=== PATIENT | female | born 2000 | race African-American/Black ===

== ENCOUNTER 2022-11-16 21:31 | Emergency (ER) | payer OTHER, MEDICAID, SELFPAY ==
[2022-11-16 21:35] VITALS: BP 138/73; PULSE 113; RESP 18; TEMP 36.7; O2SAT 98; BMI 19.8
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
[2022-11-16] MEDS: ACETAMINOPHEN 325 MG TABLET 650 MG PO (22:42)
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
[2022-11-17 01:03] VITALS: BP 114/59; PULSE 55; RESP 16; TEMP 36.9; O2SAT 100
== END 2022-11-17 01:23 | disposition short-term general hospital (02) ==
PROVIDERS: Emergency Provider Emergency Medicine
DX: T76.21XA Adult sexual abuse, suspected, initial encounter (principal)
CPT/HCPCS: 99283

== ENCOUNTER 2023-07-12 17:30 | Emergency (ER) | payer OTHER, MEDICAID, SELFPAY ==
[2023-07-12 18:00] VITALS: BP 116/67; PULSE 91; RESP 14; TEMP 36.6; O2SAT 99; BMI 21.2
[2023-07-12 18:26] LABS: Bacteria Urine None Seen; Culture Indicated Urine Cult Not Indicated; RBC Urine 10-30/HPF (0-5/HPF); Squamous Epithelial Cell Urine 1-5 /HPF (0-5/HPF); Urine Volume 10mL (spun); WBC Urine 0-1/HPF (0-5/HPF)
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
[2023-07-12 19:15] LABS: Add Manual Diff / Slide Review YES; Hematocrit 37.1 % (36-46); Hemoglobin 12.4 g/dL (12.0-16.0); Mean Corpuscular HGB Conc 33.4 % (30-36); Mean Corpuscular Hemoglobin 31.5 PG (26-34); Mean Corpuscular Volume 94.3 fL (80-100); Platelet Count 254 X10^3/uL (150-400); Red Blood Cell Count 3.94 X10^6/uL (4.0-5.2); Red Cell Distribution Width 12.9 % (11.6-14.8); White Blood Cell Count 3.6 X10^3/uL (4.5-11.0)
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
[2023-07-12 19:26] LABS: Acetaminophen < 10 ug/mL (10-30); Alanine Aminotransferase 14 IU/L (<35); Albumin Globulin Ratio 1.4 (1.0-2.8); Alkaline Phosphatase 60 U/L (38-126); Aspartate Aminotransferase 27 IU/L (14-36); BUN Creatinine Ratio 13.2 (6-22); Bilirubin Total 0.4 mg/dL (0.2-1.3); Blood Urea Nitrogen 9 mg/dL (7-17); Calcium 8.5 mg/dL (8.4-10.2); Carbon Dioxide 28 mmol/L (22-32); Chloride 104 mmol/L (98-107); Estimated Glomerular Filt Rate > 60 mL/min (>60); Ethanol (ETOH) < 10 mg/dL; Globulin 2.8 g/dL (1.7-4.1); Glucose 98 mg/dL (70-100); HEMOLYSIS < 15 (0-50); Potassium 3.6 mmol/L (3.4-5.1); Salicylate < 1.0 mg/dL (<20); Sodium 137 mmol/L (137-145); Total Protein 6.8 g/dL (6.3-8.2)
[2023-07-12 19:42] LABS: Free T4, Direct Thyroxine 0.87 ng/dL (0.78-2.19)
[2023-07-12 20:06] LABS: Neutrophils Absolute Manual 1224 /uL (3000-5900); RBC Morphology Normal Morphology; Total Cells Counted 100
== END 2023-07-12 19:34 | disposition home or self-care (01) ==
PROVIDERS: Emergency Provider Emergency Medicine
DX: F32.A Depression, unspecified (principal)
CPT/HCPCS: 80053; 80320; 80329; 81003; 81015; 81025; 84439; 84443; 85007; 85025; 99282; G0480

== ENCOUNTER 2023-07-15 14:53 | Emergency (ER) | payer OTHER, MEDICAID, SELFPAY ==
[2023-07-15 15:05] VITALS: BMI 21.2
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
--- NOTE | 2023-07-15 16:02 | PC.NURSE ---
Patient stated she needed to leave, and would like to talk to the nurse. Nurse and Social Work notified.
--- NOTE | 2023-07-15 17:02 | PC.NURSE ---
CYLINDER DYER NOTE: pt is calmly talking with her special education case manager from the family detention.
--- NOTE | 2023-07-15 17:25 | PC.NURSE ---
1721 Pt remained resistant to inpatient tx. CONSTRUCTION SALES REPRESENTATIVE spoke with pt and was given contacts to [facility] general worker and pt's therapist. CONSTRUCTION SALES REPRESENTATIVE spoke with case work and shoe caser came to speak with patient. general worker informed pt that it was not safe for her to [facility] because they do not have a staff member this weekend to help develop a safety contract. Pt agreed to voluntary inpatient tx at this time. CONSTRUCTION SALES REPRESENTATIVE aware and working on case.
[2023-07-15 17:37] VITALS: BP 122/64; PULSE 72; RESP 18; O2SAT 99
[2023-07-15 17:52] LABS: UR Morphine/Opiate cutoff 300 Negative (Negative); Ur Creatinine Normal (Normal); Ur Specific Gravity Normal (Normal); Urine Amphetamines Negative (Negative); Urine Barbiturates Negative (Negative); Urine Benzodiazepines Negative (Negative); Urine Cocaine Negative (Negative); Urine MDMA Negative (Negative); Urine Methadone Negative (Negative); Urine Methamphetamines Negative (Negative); Urine Oxycodone Negative (Negative); Urine Phencyclidine Negative (Negative); Urine Tetrahydrocannabinol Negative (Negative); Urine Tricyclic Antidepressant Negative (Negative); Urine pH Normal (Normal)
[2023-07-15 18:12] LABS: Bacteria Urine Moderate (10-30); Culture Indicated Urine Cult Not Indicated; RBC Urine None Seen (0-5/HPF); Squamous Epithelial Cell Urine 1-5 /HPF (0-5/HPF); Urine Volume 10mL (spun); WBC Urine 0-1/HPF (0-5/HPF)
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
--- NOTE | 2023-07-15 19:15 | ED.PSYCH ---
HPI - Psych General Chief Complaint: Psychiatric Symptoms Stated Complaint: SI Time Seen by Provider: 07/15/23 15:39 Source: patient and police Mode of arrival: Ambulatory Limitations: no limitations History of Present Illness HPI Narrative: 23-year-old female with history of PTSD, anxiety and suicidal ideation. Sent to the ED by Silver CANTRELL after calling the SI hotline and texting of the help line at the [facility]. Had indicated that she wanted it all to end. Had thoughts of suicidal ideation this morning and a PT did feel SERA paperwork. Patient states she was having thoughts of killing herself, she states that her plan was to strangle herself with her telephone cord. She states she does not have that intent currently. She was not able to contract for safety. But she is seeking inpatient stay, she has had 1 prior stay at [place] as a minor. She denies any thoughts of harming others. No hallucinations. She denies any other medical issues, no prior surgeries no known drug allergies. She does have a counselor supposed to see them this upcoming Sunday. Denies tobacco, no regular alcohol or recreational drugs. Related Data Allergies Allergy/AdvReac Type Severity Reaction Status Date / Time No Known Drug Allergies Allergy Verified 07/12/23 18:11 Review of Systems Review of Systems ROS Unobtainable: All systems reviewed & are unremarkable except as noted in HPI and below Patient History Social History Smoking Status: Never smoker Smoking Status: Never smoker alcohol intake frequency: holidays/special occasions only Substance Use Type: does not use Exam Narrative Exam Narrative: GENERAL: Alert and oriented x three, female in mild distress HEENT: Head normocephalic, atraumatic, EOMI, pupils reactive, face symmetric, moist mucous membranes NECK: Supple, full range of motion CARDIOVASCULAR: Regular rate and rhythm without murmurs, rubs or gallops. RESPIRATORY: Breath sounds equal bilaterally, no wheezes rales or rhonchi. ABDOMEN: Soft, nontender. Normoactive bowel sounds all 4 quadrants. No guarding or rebound, rigidity, no mass : No CVA tenderness EXTREMITIES: Normal range of motion, no clubbing or edema. Neurovascularly intact NEUROLOGICAL: Cranial nerves II through XII grossly intact. Moving all extremities SKIN: Warm, dry, no petechiae, no rashes or lesions. PSYCH: Suicidal ideation, no intent, no homicidal ideation or intent, no hallucinations. Initial Vital Signs Initial Vital Signs: Vital Signs Pulse Rate 72 07/15/23 17:37 Respiratory Rate 18 07/15/23 17:37 Blood Pressure 122/64 07/15/23 17:37 Pulse Oximetry 99 07/15/23 17:37 Oxygen Delivery Method Room Air 07/15/23 17:37 Course Orders Ordered: Discontinued Medications Acetaminophen (Acetaminophen 325 Mg Tablet) 650 mg PO Q4H PRN PRN Reason: Fever/Mild Pain (1-3) Vital Signs Vital signs: Vital Signs - 8 hr 07/16/23 01:13 Temperature 98.3 F Pulse Rate 74 Respiratory Rate 16 Blood Pressure 100/57 L Pulse Oximetry 100 Oxygen Delivery Method Room Air MDM - Psych Lab Data 07/15/23 19:55 07/15/23 19:55 Labs: Lab Results 07/15/23 07/15/23 07/15/23 Range/Units 17:15 19:50 19:55 WBC 5.7 (4.5-11.0) X10^3/uL RBC 4.04 (4.0-5.2) X10^6/uL Hgb 12.7 (12.0-16.0) g/dL Hct 37.9 (36-46) % MCV 93.9 (80-100) fL MCH 31.6 (26-34) PG MCHC 33.6 (30-36) % RDW 12.7 (11.6-14.8) % Plt Count 288 (150-400) X10^3/uL Neut % (Auto) 58.4 (50-75) % Lymph % (Auto) 32.1 (25-40) % [place] % (Auto) 7.4 (3-14) % Eos % (Auto) 1.0 L (2-4) % Baso % (Auto) 1.1 (0-2) % Neut # (Auto) 3400 (6187-7971) /uL Lymph # (Auto) 1800 (2599-4391) /uL [place] # (Auto) 400 (0-900) /uL Eos # (Auto) 100 (0-450) /uL Baso # (Auto) 100 (0-100) /uL Sodium 140 (137-145) mmol/L Potassium 3.8 (3.4-5.1) mmol/L Chloride 108 H (98-107) mmol/L Carbon Dioxide 28 (22-32) mmol/L BUN 5 L (7-17) mg/dL Creatinine 0.64 (0.52-1.04) mg/dL Estimated GFR > 60 (>60) mL/min BUN/Creatinine Ratio 7.8 (6-22) Glucose 102 H (70-100) mg/dL Calcium 8.6 (8.4-10.2) mg/dL Total Bilirubin 0.4 (0.2-1.3) mg/dL AST 29 (14-36) IU/L ALT 16 (<35) IU/L Alkaline Phosphatase 67 (38-126) U/L Total Protein 7.0 (6.3-8.2) g/dL Albumin 4.0 (3.5-5.0) g/dL Globulin 3.0 (1.7-4.1) g/dL Albumin/Globulin Ratio 1.3 (1.0-2.8) TSH 0.822 D (0.47-4.68) uIU/mL Free T4 0.86 (0.78-2.19) ng/dL Urine RBC None seen (0-5/HPF) Urine WBC 0-1/hpf (0-5/HPF) Ur Squamous Epith Cells 1-5 /hpf (0-5/HPF) Urine Bacteria Moderate (10-30) H (None) Ur Culture Indicated? Cult not indicated Vol Urine Centrifuged 10ml (spun) Salicylates < 1.0 (<20) mg/dL U Opiates 300ng/mL cut Negative (Negative) Ur Oxycodone Screen Negative (Negative) Urine Methadone Screen Negative (Negative) Acetaminophen < 10 (10-30) ug/mL Ur Barbiturates Screen Negative (Negative) U Tricyclic Antidepress Negative (Negative) Ur Phencyclidine Scrn Negative (Negative) Ur Amphetamines Screen Negative (Negative) U Methamphetamines Scrn Negative (Negative) Ur MDMA Scrn (Ecstasy) Negative (Negative) U Benzodiazepines Scrn Negative (Negative) Urine Cocaine Screen Negative (Negative) U Marijuana (THC) Screen Negative (Negative) Urine pH Normal (Normal) Urine Specific [place] Normal (Normal) Ethyl Alcohol < 10 ( - 10) mg/dL Ur Creatinine Normal (Normal) SARS-CoV-2 (PCR) Negative (Negative) Point of Care Testing Test Results Negative Urine Dip Bedside Urine Glucose Negative Bedside Urine Bilirubin - Negative Bedside Urine Ketone - Negative Urine Specific [place] 1.005 Bedside Urine Occult Blood + Bedside Urine pH 7.0 Bedside Urine Protein - Negative Bedside Urine Urobilinogen - Negative Bedside Urine Nitrite - Negative Bedside Urine Leukocytes - Negative Esterase MDM Narrative Medical decision making narrative: White count of 5.7 hemoglobin of 12 platelets of 228, sodium is 140 potassium 3.8 chloride 108 CO2 is 28 with a BUN of 5 creatinine 0.64 glucose is 102 LFTs are negative. T4 is normal at 0.86, TSH 0.86 Patient has Tylenol, salicylate and ETOH are all negative. Patient urine has bacteria but 1-5 squamous epithelials culture was not performed. Point of care is negative. UDS is negative. ETOH, Tylenol and salicylates. Patient is medically cleared, currently seeking voluntary placement. She has met with our AUTOMOTIVE LEASING SALES REPRESENTATIVE, currently seeking voluntary placement. Patient was accepted at [facility] by Dr. Buchanan, transport is set up for 8:30 a.m.. Patient was signed out to Dr. Duffy while awaiting transport. Discharge Plan Departure Patient Disposition: Xfer Psychiatric Hosp Clinical Impression: Depression, Suicidal ideation Referrals: Miscellaneous,DoctorMD [Primary Care Provider] -
[2023-07-15 20:16] LABS: Add Manual Diff / Slide Review NO; Basophils Absolute Auto 100 /uL (0-100); Basophils Percent Auto 1.1 % (0-2); Eosinophils Absolute Auto 100 /uL (0-450); Hematocrit 37.9 % (36-46); Hemoglobin 12.7 g/dL (12.0-16.0); Lymphocytes Absolute Auto 1800 /uL (1100-4500); Lymphocytes Percent Auto 32.1 % (25-40); Mean Corpuscular HGB Conc 33.6 % (30-36); Mean Corpuscular Hemoglobin 31.6 PG (26-34); Mean Corpuscular Volume 93.9 fL (80-100); Monocytes Absolute Auto 400 /uL (0-900); Monocytes Percent Auto 7.4 % (3-14); Neutrophils Absolute Auto 3400 /uL (1500-7000); Neutrophils Percent Auto 58.4 % (50-75); Platelet Count 288 X10^3/uL (150-400); Red Blood Cell Count 4.04 X10^6/uL (4.0-5.2); Red Cell Distribution Width 12.7 % (11.6-14.8); White Blood Cell Count 5.7 X10^3/uL (4.5-11.0)
[2023-07-15 20:21] LABS: Acetaminophen < 10 ug/mL (10-30); Alanine Aminotransferase 16 IU/L (<35); Albumin Globulin Ratio 1.3 (1.0-2.8); Alkaline Phosphatase 67 U/L (38-126); Aspartate Aminotransferase 29 IU/L (14-36); BUN Creatinine Ratio 7.8 (6-22); Bilirubin Total 0.4 mg/dL (0.2-1.3); Blood Urea Nitrogen 5 mg/dL (7-17); Calcium 8.6 mg/dL (8.4-10.2); Carbon Dioxide 28 mmol/L (22-32); Chloride 108 mmol/L (98-107); Estimated Glomerular Filt Rate > 60 mL/min (>60); Ethanol (ETOH) < 10 mg/dL; Glucose 102 mg/dL (70-100); HEMOLYSIS < 15 (0-50); Potassium 3.8 mmol/L (3.4-5.1); Salicylate < 1.0 mg/dL (<20); Sodium 140 mmol/L (137-145)
[2023-07-15 20:50] LABS: Free T4, Direct Thyroxine 0.86 ng/dL (0.78-2.19)
--- NOTE | 2023-07-15 20:52 | CM.SWNOTE ---
ED ENVIRONMENT ARTIST Note: At the time of this writing, pt was still not medically cleared for clinical packets to be sent. ENVIRONMENT ARTIST called [facility] and it was reported that there are two beds available. ENVIRONMENT ARTIST called [facility], it was reported that there is one bed available. ENVIRONMENT ARTIST called [facility], it was reported that there are no beds available. ENVIRONMENT ARTIST called [facility], it was reported that there is one bed available. ENVIRONMENT ARTIST called [facility], it was reported that there are no beds available. ENVIRONMENT ARTIST discussed this with [facility] and when medically cleared, packets will be sent for review. KEIRY Allen
[2023-07-15 21:04] LABS: Thyroid Stimulating Hormone 0.822 uIU/mL (0.47-4.68)
[2023-07-15 21:32] LABS: COVID19 -Nasal RAPID Negative (Negative)
[2023-07-16 01:10] VITALS: BMI 21.2
[2023-07-16 01:13] VITALS: BP 100/57; PULSE 74; RESP 16; TEMP 36.8; O2SAT 100
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
[2023-07-16 05:07] VITALS: BP 100/57; PULSE 74; RESP 16; TEMP 36.8; O2SAT 100
--- NOTE | 2023-07-16 05:37 | PC.NURSE ---
No noted changed in pt status since last assessment, pt has been sleeping. Pt continues to have a 1:1 sitter, and we will continue to monitor for any changes. Pt will be transferred later today for voluntary inpatient treatment.
[2023-07-16 08:23] VITALS: BP 100/59; PULSE 66; RESP 16; TEMP 36.6; O2SAT 100
--- NOTE | 2023-07-16 08:26 | PC.NURSE ---
Patients belongings given to [facility] for transport.
--- NOTE | 2023-07-16 08:47 | PC.NURSE ---
[facility] report # [phone] [address] Report given to Rajat Tavarez
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
== END 2023-07-16 08:38 ==
PROVIDERS: Emergency Medicine; Emergency Provider Emergency Medicine
DX: F32.A Depression, unspecified (principal); R45.851 Suicidal ideations
CPT/HCPCS: 36415; 80053; 80305; 80320; 80329; 81003; 81015; 81025; 84439; 84443; 85025; 87635; 99284; G0480

== ENCOUNTER 2024-03-05 20:30 | Emergency (ER) | payer OTHER, SELFPAY ==
[2024-03-05 20:33] VITALS: BP 122/75; PULSE 92; RESP 17; TEMP 36.3; O2SAT 100
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
--- NOTE | 2024-03-06 05:15 | PC.NURSE ---
Pt has agreed to transfer to closest hospital that will have a SANE nurse available. She will go to [facility] via taxi, they have called a nurse in for 7 am.
[2024-03-06 06:07] VITALS: BP 123/59; PULSE 106; RESP 15; O2SAT 100
== END 2024-03-06 07:02 | disposition short-term general hospital (02) ==
PROVIDERS: Emergency Provider Emergency Medicine
DX: T74.21XA Adult sexual abuse, confirmed, initial encounter (principal)
CPT/HCPCS: 81003; 81025; 99284

== ENCOUNTER 2024-06-30 17:27 | Emergency (ER) | payer OTHER, SELFPAY ==
[2024-06-30 17:44] VITALS: BP 154/70; PULSE 107; RESP 18; TEMP 36.9; O2SAT 98; BMI 22.8
--- NOTE | 2024-06-30 18:21 | CM.MNRNOTE ---
Pt denies nausea at this time. Discussed plan of care,understands.
[2024-06-30 18:28] LABS: Add Manual Diff / Slide Review NO; Basophils Absolute Auto 100 /uL (0-100); Basophils Percent Auto 0.7 % (0-2); Eosinophils Absolute Auto 200 /uL (0-450); Eosinophils Percent Auto 2.2 % (2-4); Hematocrit 42.6 % (36-46); Hemoglobin 14.5 g/dL (12.0-16.0); Lymphocytes Absolute Auto 2100 /uL (1100-4500); Lymphocytes Percent Auto 24.9 % (25-40); Mean Corpuscular HGB Conc 34.1 % (30-36); Mean Corpuscular Hemoglobin 32.1 PG (26-34); Mean Corpuscular Volume 94.2 fL (80-100); Monocytes Absolute Auto 900 /uL (0-900); Monocytes Percent Auto 10.6 % (3-14); Neutrophils Absolute Auto 5100 /uL (1500-7000); Neutrophils Percent Auto 61.6 % (50-75); Platelet Count 302 X10^3/uL (150-400); Red Blood Cell Count 4.52 X10^6/uL (4.0-5.2); Red Cell Distribution Width 12.2 % (11.6-14.8); White Blood Cell Count 8.3 X10^3/uL (4.5-11.0)
[2024-06-30 18:39] LABS: Alanine Aminotransferase 22 IU/L (<35); Albumin 4.7 g/dL (3.5-5.0); Albumin Globulin Ratio 1.3 (1.0-2.8); Alkaline Phosphatase 63 U/L (38-126); Aspartate Aminotransferase 36 IU/L (14-36); BUN Creatinine Ratio 12.2 (6-22); Bilirubin Total 0.4 mg/dL (0.2-1.3); Blood Urea Nitrogen 10 mg/dL (7-17); Calcium 9.3 mg/dL (8.4-10.2); Carbon Dioxide 26 mmol/L (22-32); Chloride 103 mmol/L (98-107); Estimated Glomerular Filt Rate > 60 mL/min (>60); Globulin 3.5 g/dL (1.7-4.1); Glucose 121 mg/dL (70-99); HEMOLYSIS < 15 (0-50); Sodium 138 mmol/L (137-145); Total Protein 8.2 g/dL (6.3-8.2)
[2024-06-30 20:10] VITALS: BP 124/72; PULSE 112; RESP 19; O2SAT 98
--- NOTE | 2024-06-30 20:42 | DI.CT.S_ITS ---
PROCEDURE: CT ANGIO ABDOMEN PELVIS INDICATIONS: hematemasis, GIB protocol TECHNIQUE: Unenhanced scanning of the abdomen was performed initially. After the administration of intravenous contrast, 2.5 mm sections acquired from the diaphragm to the iliac crests in arterial and venous phases. 10 mm maximum intensity projection (MIP) coronal and sagittal reformats were then performed. For radiation dose reduction, the following was used: automated exposure control. COMPARISON: None. FINDINGS: Image quality: Diagnostic. Abdominal aorta: No aortic aneurysm or evidence of acute aortic syndrome. Mesenteric arteries: Patent without hemodynamically significant stenosis. Renal arteries: Patent without hemodynamically significant stenosis. Lower chest: Unremarkable. ABDOMEN: Liver: No solid mass. Gallbladder: No radiopaque gallstones or wall thickening. Biliary ducts: No biliary dilation. Pancreas: No ductal dilation. Spleen: Size is within normal limits. Adrenal Glands: No adrenal nodules. Kidneys and Ureters: No hydronephrosis. No solid mass. No complex renal cystic lesion which requires follow up. Stomach and Bowel: Normal colonic caliber, without significant wall thickening. No areas of abnormal contrast accumulation seen. No focal lesions seen. Peritoneum: No abnormal intraperitoneal fluid. No free air. Ventral Wall: No hernia. Abdominal Nodes: No retroperitoneal or mesenteric adenopathy by size criteria. Vessels: Aorta, as above. Normal IVC. PELVIS: Pelvic Organs: Unremarkable. Bladder: Unremarkable. Pelvic Nodes: No enlarged lymph nodes. Miscellaneous: No inguinal hernias are seen. Bones: No aggressive osseous abnormality. IMPRESSION: 1. No signs of active GI bleeding at this time. If there is a possibility of intermittent GI bleeding, adequate assessment can be performed with scintigraphy. 2. No acute intra-abdominal abnormality seen. Dictated by: Donte Corrales M.D. on 06/30/2024 at 21:15 Approved by: Donte Corrales M.D. on 06/30/2024 at 21:24
--- NOTE | 2024-06-30 21:18 | ED.NAVMDI ---
HPI - Nausea/Vomiting/Diarrhea General Chief complaint: Nausea/Vomiting/Diarrhea Stated complaint: vomiting blood x 2 weeks Time Seen by Provider: 06/30/24 20:41 History of Present Illness HPI Narrative: 24-year-old female, prescribed lithium and buspirone and olanzapine, reports history of throwing up blood 1-2 years ago, recalls seeing ER provider in the past about this, then primary care doctor, no endoscopies apparently performed so far, was visiting [facility], had emesis of blood earlier today. No black or red stools. Some crampy abdominal discomfort. No injury or trauma. No blood thinner medications taken. She is not taking any antacid therapies regularly or recently. Related Data Home Medications Medication Instructions Recorded Confirmed buspirone 10 mg tablet 10 mg PO BID 06/30/24 06/30/24 lithium carbonate 150 mg capsule PO 06/30/24 olanzapine 5 mg tablet PO 06/30/24 Previous Rx's Medication Instructions Recorded omeprazole 20 mg capsule,delayed 20 mg PO DAILY upper abdominal 06/30/24 release pain 30 days #30 caps Allergies Allergy/AdvReac Type Severity Reaction Status Date / Time No Known Drug Allergies Allergy Verified 06/30/24 17:46 Patient History Social History Smoking Status: Never smoker Smoking Status: Never smoker tobacco type: vaping alcohol intake frequency: holidays/special occasions only Exam Narrative Exam Narrative: GENERAL: Well-developed patient, in mild distress. HEAD: Atraumatic. Normocephalic. EYES: Pupils equal round and reactive. Extraocular motions intact. No scleral icterus. No injection or drainage. ENT: Nose without bleeding, purulent drainage. Throat without erythema, tonsillar hypertrophy or exudate. Airway patent. NECK: Trachea midline. Non tender CARDIOVASCULAR: Regular rate and rhythm without murmurs, gallops, or rubs. RESPIRATORY: Clear to auscultation. Breath sounds equal bilaterally. No wheezes, rales, or rhonchi. GASTROINTESTINAL: Abdomen soft, non-tender, nondistended. EXTREMITIES: No edema or joint tenderness. BACK: Nontender without deformity or crepitance. No flank tenderness. NEURO: AOx3. Motor functions grossly nonfocal SKIN: No rash or erythema of visible areas Initial Vital Signs Initial Vital Signs: Vital Signs Temperature 98.5 F 06/30/24 17:44 Pulse Rate 107 H 06/30/24 17:44 Respiratory Rate 18 06/30/24 17:44 Blood Pressure 154/70 H 06/30/24 17:44 Pulse Oximetry 98 06/30/24 17:44 Oxygen Delivery Method Room Air 06/30/24 17:44 Course Orders Ordered: ED Orders 06/30/24 18:10 Complete Blood Count AUTO DIFF Stat Comprehensive Metabolic Panel Stat 06/30/24 20:42 CT angio abdomen pelvis Stat 06/30/24 21:55 Hemoglobin and Hematocrit Stat Prothrombin Time INR Stat Type and Screen Stat Discontinued Medications Sodium Chloride (Normal Saline 0.9%) 1,000 mls @ 1,000 mls/hr IV BOLUS ONE Stop: 06/30/24 18:49 Last Admin: 06/30/24 18:51 Dose: Not Given Documented By: Sodium Chloride (Normal Saline 0.9%) 1,000 mls @ 1,000 mls/hr IV BOLUS ONE Stop: 06/30/24 22:54 Last Infusion: 06/30/24 23:10 Dose: Infused Documented By: Admin: 06/30/24 21:57 Dose: 1,000 mls/hr Documented By: Ondansetron HCl (Ondansetron 4 Mg/2 Ml Inj) 4 mg IV NOW ONE Stop: 06/30/24 17:51 Last Admin: 06/30/24 18:51 Dose: Not Given Documented By: Ondansetron HCl (Ondansetron 4 Mg/2 Ml Inj) 4 mg IV NOW ONE Stop: 06/30/24 21:55 Last Admin: 06/30/24 21:58 Dose: 4 mg Documented By: Pantoprazole Sodium (Pantoprazole 40 Mg Vial) 80 mg IV NOW ONE Stop: 06/30/24 21:27 Last Admin: 06/30/24 21:44 Dose: 80 mg Documented By: Vital Signs Vital signs: Vital Signs - 8 hr 06/30/24 17:44 06/30/24 20:10 06/30/24 21:37 Temperature 98.5 F Pulse Rate 107 H 112 H 118 H Respiratory Rate 18 19 Blood Pressure 154/70 H 124/72 Pulse Oximetry 98 98 100 Oxygen Delivery Method Room Air Room Air 06/30/24 21:37 05/12/25 23:25 Temperature Pulse Rate 98 H Respiratory Rate 16 Blood Pressure 141/69 H 141/69 H Pulse Oximetry 100 Oxygen Delivery Method Room Air MDM - Nausea/Vomiting/Diarrhea Lab Data Attestation: I reviewed the patient's lab results. Lab results narrative: White blood cell count 8300, hemoglobin 14.5, platelets adequate. Unremarkable BNP. Liver functions normal. Urine test negative. Urine dip negative. 06/30/24 21:55 06/30/24 18:10 Labs: Lab Results 06/30/24 06/30/24 Range/Units 18:10 21:55 WBC 8.3 (4.5-11.0) X10^3/uL RBC 4.52 (4.0-5.2) X10^6/uL Hgb 14.5 14.1 (12.0-16.0) g/dL Hct 42.6 40.8 (36-46) % MCV 94.2 (80-100) fL MCH 32.1 (26-34) PG MCHC 34.1 (30-36) % RDW 12.2 (11.6-14.8) % Plt Count 302 (150-400) X10^3/uL Neut % (Auto) 61.6 (50-75) % Lymph % (Auto) 24.9 L (25-40) % [place] % (Auto) 10.6 (3-14) % Eos % (Auto) 2.2 (2-4) % Baso % (Auto) 0.7 (0-2) % Neut # (Auto) 5100 (3583-8831) /uL Lymph # (Auto) 2100 (1287-4871) /uL [place] # (Auto) 900 (0-900) /uL Eos # (Auto) 200 (0-450) /uL Baso # (Auto) 100 (0-100) /uL PT 11.4 (9.4-12.5) SECONDS INR 1.0 (0.9-1.3) Sodium 138 (137-145) mmol/L Potassium 4.0 (3.4-5.1) mmol/L Chloride 103 (98-107) mmol/L Carbon Dioxide 26 (22-32) mmol/L BUN 10 (7-17) mg/dL Creatinine 0.82 (0.52-1.04) mg/dL Estimated GFR > 60 (>60) mL/min BUN/Creatinine Ratio 12.2 (6-22) Glucose 121 H (70-99) mg/dL Calcium 9.3 (8.4-10.2) mg/dL Total Bilirubin 0.4 (0.2-1.3) mg/dL AST 36 (14-36) IU/L ALT 22 (<35) IU/L Alkaline Phosphatase 63 (38-126) U/L Total Protein 8.2 (6.3-8.2) g/dL Albumin 4.7 (3.5-5.0) g/dL Globulin 3.5 (1.7-4.1) g/dL Albumin/Globulin Ratio 1.3 (1.0-2.8) Blood Type O Positive Antibody Screen Negative Point of Care Testing Test Results Negative Urine Dip Bedside Urine Glucose Negative Bedside Urine Bilirubin - Negative Bedside Urine Ketone - Negative Urine Specific [place] 1.005 Bedside Urine Occult Blood +/- Bedside Urine pH 7.0 Bedside Urine Protein - Negative Bedside Urine Urobilinogen - Negative Bedside Urine Nitrite - Negative Bedside Urine Leukocytes + [address] angiogram abdomen and pelvis GI bleeding protocol: Radiologist's Impression: [place] [address] CT Scan Report Signed Patient: Claudine Donis MR#: [id number] : 2000 Acct:[id number] Age/Sex: 24 / F Date of Service: 06/30/24 Loc: ED Accession Number: [id number] Procedure: CT angio abdomen pelvis Ordering Provider: Elan Duffy MD PROCEDURE: CT ANGIO ABDOMEN PELVIS INDICATIONS: hematemasis, GIB protocol TECHNIQUE: Unenhanced scanning of the abdomen was performed initially. After the administration of intravenous contrast, 2.5 mm sections acquired from the diaphragm to the iliac crests in arterial and venous phases. 10 mm maximum intensity projection (MIP) coronal and sagittal reformats were then performed. For radiation dose reduction, the following was used: automated exposure control. COMPARISON: None. FINDINGS: Image quality: Diagnostic. Abdominal aorta: No aortic aneurysm or evidence of acute aortic syndrome. Mesenteric arteries: Patent without hemodynamically significant stenosis. Renal arteries: Patent without hemodynamically significant stenosis. Lower chest: Unremarkable. ABDOMEN: Liver: No solid mass. Gallbladder: No radiopaque gallstones or wall thickening. Biliary ducts: No biliary dilation. Pancreas: No ductal dilation. Spleen: Size is within normal limits. Adrenal Glands: No adrenal nodules. Kidneys and Ureters: No hydronephrosis. No solid mass. No complex renal cystic lesion which requires follow up. Stomach and Bowel: Normal colonic caliber, without significant wall thickening. No areas of abnormal contrast accumulation seen. No focal lesions seen. Peritoneum: No abnormal intraperitoneal fluid. No free air. Ventral Wall: No hernia. Abdominal Nodes: No retroperitoneal or mesenteric adenopathy by size criteria. Vessels: Aorta, as above. Normal IVC. PELVIS: Pelvic Organs: Unremarkable. Bladder: Unremarkable. Pelvic Nodes: No enlarged lymph nodes. Miscellaneous: No inguinal hernias are seen. Bones: No aggressive osseous abnormality. IMPRESSION: 1. No signs of active GI bleeding at this time. If there is a possibility of intermittent GI bleeding, adequate assessment can be performed with scintigraphy. 2. No acute intra-abdominal abnormality seen. Dictated by: Donte Corrales M.D. on 06/30/2024 at 21:15 Approved by: Donte Corrales M.D. on 06/30/2024 at 21:24 MDM Narrative Medical decision making narrative: 24-year-old female reports history of prior upper GI bleeding apparently 1 or 2 years ago, evaluated in the emergency department but did not seek or obtained follow up endoscopy evaluation, not taking antacids, medication list includes buspirone and lithium and olanzapine, no recent exposure to NSAIDs or aspirin or steroids. No known diagnosed source of upper GI bleeding in the past. Had thrown up blood earlier today while visiting from home [facility] in [place], presented here for further evaluation. He has not take blood thinner medications. Labs pending. Hemoglobin and platelets adequate. CT scanning ordered. CT abdomen and pelvis angiogram showed no definite source of bleeding, also showed no acute changes, no cirrhosis or varices. See radiology report. Oral Protonix dose. Given prescription for omeprazole. Advised that she seek upper endoscopy evaluation in her home area [place]. Gave contact information for local general [place] surgeon Dr. Zuniga, to contact that office for local endoscopy if she chooses to have endoscopy in [facility]. Further evaluation as an outpatient for now. Return precautions discussed. Discharge Plan Departure Patient Disposition: Home Clinical Impression: Upper GI bleeding Activity Restrictions/Additional Instructions: Reported history of upper gastrointestinal bleeding in the past but apparently no upper endoscopy evaluation. No chronic or recent antacid therapy. Upper gastrointestinal bleeding symptoms earlier today. Hemoglobin level normal. CT abdomen and pelvis imaging angiogram showed no obvious acute conditions, no obvious source of bleeding by imaging at least. You seemed hemodynamically stable. Consider starting antacid therapy. Consider upper endoscopy to look for underlying lesion such as esophagitis inflammation of the esophagus, esophageal ulcers, esophageal tumors, stomach ulcers, inflammation of the stomach lining gastritis, ulcers of the do any them just after the stomach, cancerous lesions, or other lesions. Take omeprazole antacid for now. You live in the [facility]. There are ladies attendant in the [facility]. Consider referral from your local provider for Gastroenterology referral. If you pursue upper endoscopy in [place], there are no Gastroenterology providers on staff here, but General surgery can do endoscopy evaluations. Contact information given for the office of Dr. Zuniga at [facility], if you want to make arrangements there. Avoid alcohol, Motrin, naproxen, aspirin medications that might irritate your stomach lining. Take antacids regularly. Follow up for timely endoscopy evaluation. Return earlier to this/nearest emergency department for any change worsening symptoms or any concerns prior. Prescriptions: New omeprazole 20 mg capsule,delayed release(DR/EC) 20 mg PO DAILY 30 Days Qty: 30 0RF No Action olanzapine 5 mg tablet PO lithium carbonate 150 mg capsule PO buspirone 10 mg tablet 10 mg PO BID Referrals: Pete Zuniga MD [Physician] - Jaky Coates PA-C [Primary Care Provider] - Stand Alone Forms: Patient Portal/API/Survey
[2024-06-30 21:37] VITALS: BP 141/69; PULSE 118; O2SAT 100
[2024-06-30] MEDS: PANTOPRAZOLE 40 MG VIAL 80 MG IV (21:44)
[2024-06-30] MEDS: SODIUM CHLORIDE 0.9% 1,000 ML 1000 ML IV (21:57)
[2024-06-30] MEDS: ONDANSETRON 4 MG/2 ML INJ IV (21:58)
[2024-06-30 22:04] LABS: Hematocrit 40.8 % (36-46); Hemoglobin 14.1 g/dL (12.0-16.0)
[2024-06-30 22:12] LABS: Prothrombin Time 11.4 SECONDS (9.4-12.5)
--- NOTE | 2024-06-30 22:15 | PC.NURSE ---
Pt states that she has been seen for this same issue in the past but not had any follow up with a GI specialits. Pt also states that she has not had any abdominal surgeries or procedures done. Pt states that the provider that had seen her in the past stated that it was a throat thing and it would go away.
[2024-06-30 23:25] VITALS: BP 141/69; PULSE 98; RESP 16; O2SAT 100
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
== END 2024-06-30 23:26 | disposition home or self-care (01) ==
PROVIDERS: Emergency Medicine; Emergency Provider Emergency Medicine
DX: K92.2 Gastrointestinal hemorrhage, unspecified (principal)
CPT/HCPCS: 36415; 74174; 80053; 81003; 81025; 85014; 85018; 85025; 85610; 86850; 86900; 86901; 96361; 96374; 96375; 99284; J2405; J2470; Q9967

== ENCOUNTER 2024-11-11 03:26 | Emergency (ER) | payer OTHER, SELFPAY ==
--- NOTE | 2024-11-11 03:41 | ED.GENADULT ---
HPI - General Adult General Chief complaint: Upper Respiratory Symptoms Stated complaint: Vomiting Blood, Back Pain Time Seen by Provider: 11/11/24 03:39 History of Present Illness HPI narrative: 24-year-old female felt burning sensation in her throat, wrenched, vomited twice at 7 and at 10:00 p.m. last night, both times had streak of blood emesis, denies epigastric or upper anterior abdominal pain, but has some posterior back pain. She told me that she had not had similar symptoms before, but nursing triage note indicates that she had some kind of stomach thing and vomited blood in the past. She is not taking any blood thinner medications. Denies use of the leave or naproxen or aspirin. No trauma blunt or penetrating trauma, no new activities. No black or red stools. Denies history of cirrhosis, liver disease, bleeding problems. No recent nosebleeds. She is not coughing up blood. Related Data Home Medications ?Medication ?Instructions ?Recorded ?Confirmed buspirone 10 mg tablet 10 mg PO BID 06/30/24 06/30/24 lithium carbonate 150 mg capsule PO 06/30/24 olanzapine 5 mg tablet PO 06/30/24 Previous Rx's ?Medication ?Instructions ?Recorded omeprazole 20 mg capsule,delayed 20 mg PO DAILY upper abdominal 11/11/24 release pain 30 days #30 caps Allergies Allergy/AdvReac Type Severity Reaction Status Date / Time No Known Drug Allergies Allergy Verified 06/30/24 17:46 Patient History tobacco type: vaping alcohol intake frequency: holidays/special occasions only Exam Narrative Exam Narrative: GENERAL: Well-developed patient, in mild distress. HEAD: Atraumatic. Normocephalic. EYES: Pupils equal round and reactive. Extraocular motions intact. No scleral icterus. No injection or drainage. ENT: Nose without bleeding, purulent drainage. Throat without erythema, tonsillar hypertrophy or exudate. Airway patent. NECK: Trachea midline. Non tender CARDIOVASCULAR: Regular rate and rhythm without murmurs, gallops, or rubs. RESPIRATORY: Clear to auscultation. Breath sounds equal bilaterally. No wheezes, rales, or rhonchi. GASTROINTESTINAL: Abdomen soft, non-tender, nondistended. EXTREMITIES: No edema or joint tenderness. BACK: Nontender without deformity or crepitance. No flank tenderness. NEURO: AOx3. Motor functions grossly nonfocal. SKIN: No rash or erythema of visible areas Initial Vital Signs Initial Vital Signs: Vital Signs Temperature 98 F 11/11/24 03:42 Pulse Rate 92 H 11/11/24 03:42 Respiratory Rate 16 11/11/24 03:42 Blood Pressure 135/76 11/11/24 03:42 Pulse Oximetry 99 11/11/24 03:42 Oxygen Delivery Method Room Air 11/11/24 03:42 Course Orders Ordered: ED Orders 11/11/24 03:59 Test Urine Stat Urinalysis and Microscopic Stat Urine Drug Screen, Rapid Stat 11/11/24 04:15 Complete Blood Count AUTO DIFF Stat Comprehensive Metabolic Panel Stat Ethanol (ETOH) Stat HCG Quantitative /Beta subunit Stat Lipase Stat [place] Stat Prothrombin Time INR Stat 11/11/24 04:39 CT angio Abd/Pel GI Bleed Stat Discontinued Medications Ondansetron HCl (Ondansetron 4 Mg/2 Ml Inj) 4 mg IV NOW ONE Stop: 11/11/24 03:46 Last Admin: 11/11/24 04:22 Dose: 4 mg Documented By: JOJO Ondansetron HCl (Ondansetron 4 Mg Odt Prepack) 1 bottle MISC DIRECTED ONE Stop: 11/11/24 05:50 Last Admin: 11/11/24 06:02 Dose: 1 bottle Documented By: RIDGE Pantoprazole Sodium (Pantoprazole 40 Mg Vial) 80 mg IV NOW ONE Stop: 11/11/24 03:44 Last Admin: 11/11/24 04:22 Dose: 80 mg Documented By: JOJO Vital Signs Vital signs: Vital Signs - 8 hr 11/11/24 03:42 11/11/24 05:49 Temperature 98 F Pulse Rate 92 H 87 Respiratory Rate 16 15 Blood Pressure 135/76 114/56 L Pulse Oximetry 99 97 Oxygen Delivery Method Room Air Room Air Medical Decision Making Lab Data Lab results reviewed: Yes I reviewed the patient's lab results. Lab results narrative: White blood cell count 8300, hemoglobin 14.0, platelets adequate. Glucose 101. Normal renal function, serum CO2, electrolytes. Liver functions slight transaminitis, T bili and alkaline phosphatase normal. Lipase normal. HCG negative. [place] level nonmeasurable. Urinalysis negative. UDS negative. Ethanol negative. HCG negative. 11/11/24 04:15 11/11/24 04:15 Labs: Lab Results 11/11/24 11/11/24 11/11/24 Range/Units 03:59 03:59 04:15 WBC 8.3 (4.5-11.0) X10^3/uL RBC 4.34 (4.0-5.2) X10^6/uL Hgb 14.0 (12.0-16.0) g/dL Hct 41.1 (36-46) % MCV 94.6 (80-100) fL MCH 32.2 (26-34) PG MCHC 34.0 (30-36) % RDW 12.6 (11.6-14.8) % Plt Count 309 (150-400) X10^3/uL Neut % (Auto) 74.2 (50-75) % Lymph % (Auto) 18.4 L (25-40) % [place] % (Auto) 5.3 (3-14) % Eos % (Auto) 0.9 L (2-4) % Baso % (Auto) 1.2 (0-2) % Neut # (Auto) 6100 (7633-0970) /uL Lymph # (Auto) 1500 (0951-6513) /uL [place] # (Auto) 400 (0-900) /uL Eos # (Auto) 100 (0-450) /uL Baso # (Auto) 100 (0-100) /uL PT 11.1 (9.4-12.5) SECONDS INR 1.0 (0.9-1.3) Sodium 139 (137-145) mmol/L Potassium 3.4 (3.4-5.1) mmol/L Chloride 104 (98-107) mmol/L Carbon Dioxide 25 (22-32) mmol/L BUN 5 L (7-17) mg/dL Creatinine 0.71 (0.52-1.04) mg/dL Estimated GFR > 60 (>60) mL/min BUN/Creatinine Ratio 7.0 (6-22) Glucose 101 H (70-99) mg/dL Calcium 9.5 (8.4-10.2) mg/dL Total Bilirubin 0.6 (0.2-1.3) mg/dL AST 45 H (14-36) IU/L ALT 35 H (<35) IU/L Alkaline Phosphatase 89 (38-126) U/L Total Protein 8.6 H (6.3-8.2) g/dL Albumin 4.8 (3.5-5.0) g/dL Globulin 3.8 (1.7-4.1) g/dL Albumin/Globulin Ratio 1.3 (1.0-2.8) Lipase 56 (23-300) U/L HCG, Quant < 2.39 mIU/mL Urine Color Yellow Urine Appearance Clear Urine pH 6.0 TNP (4.5-8.0) Ur Specific [place] 1.015 (1.000-1.035) Urine Protein Negative (Negative) Urine Glucose (UA) Negative (Negative) g/dL Urine Ketones Negative (NEGATIVE) Urine Occult Blood Trace-intact (Negative) Urine Nitrate Negative (Negative) Urine Bilirubin Negative (NEGATIVE) Urine Urobilinogen 0.2 (0.2) E.U./dL Ur Leukocyte Esterase Negative (NEGATIVE) Urine RBC None seen (0-5/HPF) Urine WBC None seen (0-5/HPF) Ur Squamous Epith Cells 0-1 /hpf (0-5/HPF) Urine Bacteria None seen (None) Ur Culture Indicated? Cult not indicated Vol Urine Centrifuged 10ml (spun) Urine Test Negative (Negative) U Opiates 300ng/mL cut Negative (Negative) Ur Oxycodone Screen Negative (Negative) Urine Methadone Screen Negative (Negative) Ur Barbiturates Screen Negative (Negative) U Tricyclic Antidepress Negative (Negative) Ur Phencyclidine Scrn Negative (Negative) Ur Amphetamines Screen Negative (Negative) U Methamphetamines Scrn Negative (Negative) Ur MDMA Scrn (Ecstasy) Negative (Negative) U Benzodiazepines Scrn Negative (Negative) [place] < 0.2 L (0.6-1.2) mmol/L Urine Cocaine Screen Negative (Negative) U Marijuana (THC) Screen Negative (Negative) Urine Specific [place] TNP Ethyl Alcohol < 10 (<10) mg/dL Ur Creatinine TNP MDM Narrative Medical decision making narrative: 24-year-old female with burning sensation to throat, retching, then emesis of blood streaked material. Equivocal about whether or not she has had similar symptoms in the past. No recent antacids. Does not take blood thinner medications. Denies use of NSAIDs, alcohol. Afebrile, sirs screen negative. Abdomen without rigidity or tenderness. Lab data: White blood cell count 8300, hemoglobin 14.0, platelets adequate. Glucose 101. Normal renal function, serum CO2, electrolytes. Liver functions slight transaminitis, T bili and alkaline phosphatase normal. Lipase normal. HCG negative. [place] level nonmeasurable. Urinalysis negative. UDS negative. Ethanol negative. HCG negative. CT angio abdomen and pelvis GI bleeding protocol. Impression: ?No CT findings of gastrointestinal hemorrhage. See radiology report. Possible Krissy-Hutton related upper GI bleeding by history, recent retching. Outpatient evaluation for now, we will discharge on antiemetics and antacids. Oral fluid challenge taken well. Contact information given for local general surgery, for consideration of outpatient follow up upper endoscopy. Discharged home. Return precautions discussed. Discharge Plan Departure Patient Disposition: Home Clinical Impression: Krissy-Hutton syndrome, Upper gastrointestinal bleed Instructions: DI for Krissy-Hutton Syndrome Activity Restrictions/Additional Instructions: Nausea back pain retching, with bringing up of blood streaks. Suspicious for esophageal stretch tear injury, Krissy-Hutton syndrome. CT angiogram abdomen and pelvis imaging did not show any obvious acute gastrointestinal hemorrhage, nor any underlying liver disease or other acute abdominopelvic conditions at this time. IV antacids and antinausea medications given. Home pack of ondansetron oral dissolvable tablet see use if needed for control of nausea/vomiting symptoms. Take Tylenol as needed for discomfort. Do not take ibuprofen or naproxen or aspirin. Avoid alcohol. Avoid carbonated acidic beverages. Consider upper endoscopy in follow up. Contact information given for local general surgery clinic, that performs upper endoscopies in this hospital setting. Take antacid omeprazole as prescribed. Call for endoscopy evaluation during open hours later today/tomorrow. Return to this/nearest emergency department for any change worsening symptoms or any concerns prior. Prescriptions: New omeprazole 20 mg capsule,delayed release(DR/EC) 20 mg PO DAILY 30 Days Qty: 30 0RF No Action olanzapine 5 mg tablet PO lithium carbonate 150 mg capsule PO buspirone 10 mg tablet 10 mg PO BID Referrals: Pete Zuniga MD [Physician, General Surgery] Jaky Coates PA-C [Primary Care Provider, Medical] Stand Alone Forms: Patient Portal/API
[2024-11-11 03:42] VITALS: BP 135/76; PULSE 92; RESP 16; TEMP 36.6; O2SAT 99; BMI 21.2
--- NOTE | 2024-11-11 03:42 | PC.WOUNDPHOT ---
see triage note for details, pt c/o burning in her throat, pt vomited x2 Sun and continues to have burning in her throat, the burning was the first symptom pt was wondering if it was because of the new med she just started which was buspar. pt has been seen here before in the past for vomiting blood but does not remember the dx nor the meds she was given. pt noted bright red streaks of blood in the vomit but no active or further bleeding noted. pt has not taken anything nor done anything for the burning in her throat
[2024-11-11] MEDS: PANTOPRAZOLE 40 MG VIAL 80 MG IV (04:22)
[2024-11-11] MEDS: ONDANSETRON 4 MG/2 ML INJ IV (04:22)
[2024-11-11 04:26] LABS: Appearance Urine UA CLEAR; Bilirubin Urine UA NEGATIVE (NEGATIVE); Color Urine UA YELLOW; Glucose Urine UA NEGATIVE (Negative); Ketones Urine UA NEGATIVE (NEGATIVE); Leukocyte Esterase Urine UA NEGATIVE (NEGATIVE); Nitrite Urine UA NEGATIVE (Negative); Occult Blood Urine UA TRACE-INTACT (Negative); Protein Urine UA NEGATIVE (Negative); Specific Gravity Urine UA 1.015 (1.000-1.035); Urobilinogen Urine UA 0.2 E.U./dL (0.2)
[2024-11-11 04:29] LABS: pH Urine UA 6.0 (4.5-8.0)
[2024-11-11 04:31] LABS: UR Morphine/Opiate cutoff 300 Negative (Negative); Urine MDMA Negative (Negative); Urine Methamphetamines Negative (Negative); Urine Tetrahydrocannabinol Negative (Negative); Urine Tricyclic Antidepressant Negative (Negative)
[2024-11-11 04:32] LABS: Add Manual Diff / Slide Review NO; Hematocrit 41.1 % (36-46); Hemoglobin 14.0 g/dL (12.0-16.0); Lymphocytes Absolute Auto 1500 /uL (1100-4500); Mean Corpuscular HGB Conc 34.0 % (30-36); Mean Corpuscular Hemoglobin 32.2 PG (26-34); Mean Corpuscular Volume 94.6 fL (80-100); Platelet Count 309 X10^3/uL (150-400)
[2024-11-11 04:38] LABS: INR 1.0 (0.9-1.3); Prothrombin Time 11.1 SECONDS (9.4-12.5)
[2024-11-11 04:39] LABS: Culture Indicated Urine Cult Not Indicated
--- NOTE | 2024-11-11 04:39 | DI.CT.S_ITS ---
PROCEDURE: CT ANGIO ABD/PEL GI BLEED INDICATIONS: emesis blood, HCG neg TECHNIQUE: After the administration of intravenous contrast, 2.5 mm sections acquired from the diaphragm to the iliac crests. 10 mm maximum intensity projection (MIP) coronal and sagittal reformats were then performed. For radiation dose reduction, the following was used: automated exposure control. COMPARISON: [facility], CT, CT ANGIO ABDOMEN PELVIS, 06/30/2024, 20:51. FINDINGS: Image quality: Diagnostic. Abdominal aorta: No aortic aneurysm or evidence of acute aortic syndrome. Mesenteric arteries: Patent without hemodynamically significant stenosis. Renal arteries: Patent without hemodynamically significant stenosis. Lower chest: Unremarkable. ABDOMEN: Liver: No solid mass. Gallbladder: No radiopaque gallstones or wall thickening. Biliary ducts: No biliary dilation. Pancreas: No ductal dilation. Spleen: Size is within normal limits. Adrenal Glands: No adrenal nodules. Kidneys and Ureters: No hydronephrosis. No solid mass. No complex renal cystic lesion which requires follow up. Stomach and Bowel: Normal colonic caliber, without significant wall thickening. No active extravasation. No pooling blood on portal venous phase. Normal appendix. Peritoneum: No abnormal intraperitoneal fluid. No free air. Ventral Wall: No hernia. Abdominal Nodes: No retroperitoneal or mesenteric adenopathy by size criteria. Vessels: Aorta, as above. Normal IVC. PELVIS: Pelvic Organs: Unremarkable. Bladder: Unremarkable. Pelvic Nodes: No enlarged lymph nodes. Miscellaneous: No inguinal hernias are seen. Bones: No aggressive osseous abnormality. IMPRESSION: No CT findings of gastrointestinal hemorrhage. Findings are concordant preliminary interpretation provided by [facility]. Dictated by: Bonilla Grove M.D. on 11/11/2024 at 8:13 Approved by: Bonilla Grove M.D. on 11/11/2024 at 8:16
[2024-11-11 04:43] LABS: Alanine Aminotransferase 35 IU/L (<35); Albumin 4.8 g/dL (3.5-5.0); Albumin Globulin Ratio 1.3 (1.0-2.8); Alkaline Phosphatase 89 U/L (38-126); Blood Urea Nitrogen 5 mg/dL (7-17); Calcium 9.5 mg/dL (8.4-10.2); Carbon Dioxide 25 mmol/L (22-32); Chloride 104 mmol/L (98-107); Estimated Glomerular Filt Rate > 60 mL/min (>60); Ethanol (ETOH) < 10 mg/dL (<10); Globulin 3.8 g/dL (1.7-4.1); Glucose 101 mg/dL (70-99); HEMOLYSIS < 15 (0-50); Lipase 56 U/L (23-300); Potassium 3.4 mmol/L (3.4-5.1); Sodium 139 mmol/L (137-145); Total Protein 8.6 g/dL (6.3-8.2)
[2024-11-11 04:59] LABS: HCG Quantitative /Beta subunit < 2.39 mIU/mL
[2024-11-11 05:08] LABS: Lithium < 0.2 mmol/L (0.6-1.2)
[2024-11-11 05:49] VITALS: BP 114/56; PULSE 87; RESP 15; O2SAT 97
[2024-11-11] MEDS: ONDANSETRON 4 MG ODT PREPACK 1 BOTTLE MISC (06:02)
== END 2024-11-11 06:06 | disposition home or self-care (01) ==
PROVIDERS: Emergency Provider Emergency Medicine
DX: K92.2 Gastrointestinal hemorrhage, unspecified (principal); K22.6 Gastro-esophageal laceration-hemorrhage syndrome
CPT/HCPCS: 36415; 74174; 80053; 80178; 80305; 80320; 81001; 81025; 83690; 84702; 85025; 85610; 96374; 96375; 99284; J2405; J2470; Q9967